=== PATIENT | female | born 1940 | race Hispanic/Latino ===

== ENCOUNTER 2023-08-19 11:47 | Observation (INO) | payer MEDICARE ==
[2023-08-19] MEDS ORDERED: Acetaminophen 325 MG TAB PO PRN (19:41)
[2023-08-19 20:39] LABS: #Eosinphils 0.1 10x3/uL (0.0-0.5); #Monocytes 0.5 10x3/uL (0.0-1.1); #Neutrophils 12.4 10x3/uL (1.5-8.4); %Basophils 0.3 % (0.0-2.0); %Eosinophils 0.6 % (0.0-6.0); %Lymphocytes 15.6 % (18.0-47.0); %Monocytes 3.5 % (0.0-10.0); %Neutrophils 79.4 % (40.0-75.0); ALT (SGPT) 11 U/L (8-55); AST (SGOT) 11 U/L (5-34); Albumin 3.8 g/dL (3.4-4.8); Alkaline Phosphatase 141 U/L (40-110); Anion Gap 15 mmol/L (10-20); BUN (Urea Nitrogen) 30 mg/dL (9.8-20.1); Bilirubin, Total 0.2 mg/dL (0.2-1.2); Calc. Creatinine Clearance 0 mL/min (70-130); Calcium 9.7 mg/dL (7.8-10.44); Carbon Dioxide 20 mmol/L (23-31); Chloride 100 mmol/L (98-107); Estimated GFR 64; Globulin 3.8 g/dL (2.4-3.5); Glucose 154 mg/dL (83-110); Hematocrit 22.5 % (34.9-44.5); Hemoglobin 7.3 g/dL (12.0-15.5); Magnesium 2.3 mg/dL (1.6-2.6); Mean Corpuscular HGB CONC 32.4 g/dL (32.0-36.0); Mean Corpuscular Hemoglobin 31.3 pg (27.0-33.0); Mean Corpuscular Volume 96.6 fl (81.6-98.3); Mean Platelet Volume 9.5 fl (7.4-10.4); Platelet Count 588 10x3/uL (150-450); Potassium 4.5 mmol/L (3.5-5.1); Protein, Total 7.6 g/dL (5.8-8.1); RBC Distribution Width 13.8 % (11.5-14.5); Red Blood Cell (RBC) Count 2.33 10x6/uL (3.90-5.03); Sodium 130 mmol/L (136-145); White Blood Cell (WBC) Count 15.6 10x3/uL (3.5-10.5)
[2023-08-19] MEDS ORDERED: oxyCODONE 5 MG TAB PO PRN (20:47)
[2023-08-19] MEDS ORDERED: HYDROcodone/Acetaminophen 5/325 mg Tablet PO PRN (20:47)
[2023-08-19] MEDS: Senokot S 8.6-50 MG TAB PO SCH (22:42)
[2023-08-19] MEDS: Sodium Chloride 0.9% 1,000 ML IV SCH (22:42)
[2023-08-20 01:15] VITALS: BMI 15.3
[2023-08-20 07:04] LABS: Ferritin 137.26 ng/mL (10-291)
[2023-08-20] MEDS ORDERED: Megestrol Acetate 40 MG TAB PO SCH (09:00)
[2023-08-20] MEDS ORDERED: Cholecalciferol 1,000 UNITS (25 MCG) TAB PO SCH (09:00)
[2023-08-20] MEDS ORDERED: Folic Acid 1 MG TAB PO SCH (09:00)
[2023-08-20] MEDS ORDERED: Polyethylene Glycol 3350 17 GM Packet PO SCH (09:00)
[2023-08-20] MEDS ORDERED: Ferrous Sulfate 325 MG TAB PO SCH (09:00)
[2023-08-20] MEDS ORDERED: Multivitamin W/ Minerals 1 TAB PO SCH (09:00)
[2023-08-20] MEDS: Senokot S 8.6-50 MG TAB PO SCH (09:13)
[2023-08-20 09:33] LABS: #Eosinphils 0.1 10x3/uL (0.0-0.5); #Monocytes 0.7 10x3/uL (0.0-1.1); #Neutrophils 11.8 10x3/uL (1.5-8.4); %Basophils 0.2 % (0.0-2.0); %Eosinophils 0.6 % (0.0-6.0); %Lymphocytes 12.3 % (18.0-47.0); %Monocytes 5.1 % (0.0-10.0); %Neutrophils 81.3 % (40.0-75.0); Hematocrit 20.8 % (34.9-44.5); Hemoglobin 6.8 g/dL (12.0-15.5); Mean Corpuscular HGB CONC 32.7 g/dL (32.0-36.0); Mean Corpuscular Hemoglobin 31.5 pg (27.0-33.0); Mean Corpuscular Volume 96.3 fl (81.6-98.3); Mean Platelet Volume 9.6 fl (7.4-10.4); Platelet Count 519 10x3/uL (150-450); RBC Distribution Width 13.5 % (11.5-14.5); Red Blood Cell (RBC) Count 2.16 10x6/uL (3.90-5.03); White Blood Cell (WBC) Count 14.5 10x3/uL (3.5-10.5)
[2023-08-20 10:13] LABS: Bilirubin Neg (Negative); Blood, Urine 10 (Negative); Clarity Clear (Clear); Glucose, Urine (Dipstick) Normal (Negative); Ketone, Urine Negative (Negative); Leukocyte 100 (Negative); Nitrite Negative (Negative); Protein, Urine (Dipstick) 30 mg/dl (Neg-Trace); Urobilinogen Normal mg/dL (Less than 2)
[2023-08-20 10:31] LABS: CAUTI Indications for Culture Alt mental st,lethar; RBC/HPF 0-3 HPF (0-3); Squamous Epithelial 0-3 HPF (0-3)
[2023-08-20 10:32] LABS: Bacteria/HPF 1+ HPF (None Seen)
[2023-08-20 10:33] LABS: Urine Culture Reflex Yes Yes
[2023-08-20] MEDS ORDERED: traMADol HCl 50 MG TAB PO PRN (10:50)
[2023-08-20] MEDS ORDERED: oxyCODONE 5 MG TAB PO PRN (10:51)
[2023-08-20] MEDS ORDERED: traMADol HCl 50 MG TAB PO SCH (11:00)
[2023-08-20] MEDS ORDERED: cefTRIAXone\\ROCEPHIN 1 GM in Sodium Chloride 0.9% 100 ML IVPB SCH (12:15)
[2023-08-20] MEDS: Sodium Chloride 0.9% 1,000 ML IV SCH (15:55)
[2023-08-20 17:17] VITALS: BP 144/65; TEMP 98.5
== END 2023-08-20 17:53 | disposition hospice, home (50) ==
LOC: INTOOBSV 15:10 → CSHTELE 15:10
PROVIDERS: ADMIT Internal Medicine; ATTEND Internal Medicine
DX: C55 Malignant neoplasm of uterus, part unspecified (principal); D75.89 Other specified diseases of blood and blood-forming organs; I10 Essential (primary) hypertension; F41.9 Anxiety disorder, unspecified; D75.839 Thrombocytosis, unspecified; E55.9 Vitamin D deficiency, unspecified; F03.90 Unspecified dementia, unspecified severity, without behavioral disturbance, psychotic disturbance, mood disturbance, and anxiety; E78.5 Hyperlipidemia, unspecified; Z87.891 Personal history of nicotine dependence; Z79.899 Other long term (current) drug therapy
CPT/HCPCS: 36430; 71045; 81001; 82607; 82728; 83735; 85025; 86850; 86900; 86901; 86920; 87077; 87086; 87186; 93005; 96372; 96374; G0378 ×2; P9016; 36415; 80053; 84443; 93010; J0696; J1650; J3490; J7050; S0179